=== PATIENT | female | born 1945 | race Caucasian/White ===

== ENCOUNTER → 2016-07-06 | Outpatient (CLI) | payer OTHER, BC ==
[2016-07-06 11:09] LABS: BUN/CREATININE RATIO 15.83 (6-20); CALCIUM 9.5 mg/dL (8.7-10.7); CREATININE 1.2 mg/dL (0.50-1.20); POTASSIUM 4.4 meq/L (3.8-5.2)
[2016-07-06 11:15] LABS: HEMOGLOBIN A1C 7.96 % (4.2-6.0); MEAN BLOOD GLUCOSE (CALC) 179.068 mg/dL
== END ==
LOC: MOB LAB 09:21
DX: E11.9 Type 2 diabetes mellitus without complications (principal); Z79.4 Long term (current) use of insulin; I10 Essential (primary) hypertension; M10.9 Gout, unspecified; J44.9 Chronic obstructive pulmonary disease, unspecified; Z86.010 Personal history of colon polyps
CPT/HCPCS: 36415; 80048; 83036; 84443; 99213; G0463

== ENCOUNTER → 2016-09-02 | Outpatient (CLI) | payer OTHER, BC | LOC: MMPC 09:00 | DX: J06.9 Acute upper respiratory infection, unspecified (principal); J44.1 Chronic obstructive pulmonary disease with (acute) exacerbation | CPT/HCPCS: 99213; G0463 ==